=== PATIENT | male | born 1965 | race Caucasian/White ===

== ENCOUNTER 2016-12-30 08:42 | Emergency (ER) | payer OTHER ==
[2016-12-30 09:00] VITALS: BP 136/92; PULSE 83; RESP 16; O2SAT 100
--- NOTE | 2016-12-30 09:01 | ED.REPORT ---
HPI-Extremity Problem Lower Date of Service Dec 30, 2016 ED Provider: Antonio Pt is a 51 year old male presenting to the ED complaining of a possible needle stuck in his left thigh. He denies any pain or discomfort. He was putting in IM testosterone and felt that the plunger pushed in easier than normal, then when he removed it he did not visualize the needle. Denies vomiting, fever, wheezing , weakness, or any swelling or pain. Nursing Notes Stated Complaint: POSS NEEDLE IN RT THIGH Chief Complaint: Extremity Trauma Nursing Notes Reviewed: Yes Allergies: Coded Allergies: No Known Allergies (Unverified , 12/30/16) General Time Seen by MD: 09:01 Chief Complaint Thigh injury left Hx Obtained From: Patient Arrived By: Walk-in Onset Occurred: Just prior to arrival Symptom Duration: Since onset Location: : Thigh left Severity: Current: No pain currently Severity: Maximum: No pain Recent Healthcare: No recent doctor visit, No recent hospitalization Similar Sx Previous: No Past Medical History Past Medical History IM testosterone injections Past Surgical History denies Smoking History Unknown if Ever Smoker Ambulatory Status Independent Review of Systems Constitutional: Denies: Fever, Weakness - generalized Musculoskeletal: Denies: Extremity pain, Extremity swelling Complete sys rev & neg: except as marked. Respiratory: Denies: Wheezing GI: Denies: Vomiting Physical Exam Initial Vital Signs Vital Signs (First) Date Time Temp Pulse Resp B/P Pulse Ox O2 Delivery O2 Flow Rate FiO2 12/30/16 09:00 36.8 83 16 136/92 100 Room Air Initial VS: Reviewed General/Constitutional: Well-developed, Well-nourished Head / Eyes: Atraumatic, Normocephalic, PERRL ENT: Mucous membranes moist, Conjunctiva normal, No scleral icterus Neck: Full range of motion Respiratory: No respiratory distress Abdomen / GI: No distention Upper Extremities: Vascular intact, Neuro intact, No swelling, No tenderness Neurologic: Alert, Oriented, Nonfocal Psychiatric: Mood/affect normal, Behavior normal, Normal thought content Lower Extremity / Pelvis / MS: No deformity, Neurologic intact, Vascular intact Injection site on the left anterior mid thigh. No palpable subcutaneous foreign body. No tenderness. Re-Eval/Medical Decision Med Decision/Clinical Course Patient self injects testosterone. The needle that he uses has a auto retractable device. While in the room, the patient fully disassembled the syringe and together we both identified a fully intact needle. There is no palpable foreign body in the thigh. Patient is discharged. Re-Evaluation/Progress : Time of Eval: 09:14 Patient Status: Condition improved Re-Evaluation/Progress Note: The pt brought a "vanishing" needle device. He took it apart and we both visualized that the needle was in the syringe. I don't palpate a foreign body. We both agree that we visualized the needle in the plunger. Discussed plan for discharge. Pt understands and agrees. Counseled Regarding: Diagnosis, Lab results, Need for follow-up, When/why to return to ED Discharge & Departure Impression: Primary Impression: Complication of injection Encounter type: initial encounter Qualified Code: T80.90XA - Unspecified complication following infusion and therapeutic injection, initial encounter Disposition: Home Discharge Condition All VS Reviewed: Yes Condition: Improved Additional Instructions: After further evaluation of your syringe, we have identified that the needle is not retained in your body. Follow up with your doctor as needed and return to ER as needed. Joyce Attestation Portions of this note were transcribed by Stacey Garcia. I, Dr. Alvarez personally performed the history, physical exam and medical decision-making; I reviewed and confirmed the accuracy of the information in the transcribed note. Signed by: Joyce Stovall, 12/30/2016. Christian Alvarez DO Dec 30, 2016 09:01 STACEY GARCIA Dec 30, 2016 09:09
[2016-12-30 09:56] VITALS: BP 136/92; PULSE 83; RESP 16; O2SAT 100
== END 2016-12-30 09:56 | disposition home or self-care (01) ==
LOC: SED 08:42
DX: T80.89XA Other complications following infusion, transfusion and therapeutic injection, initial encounter (principal); Y84.8 Other medical procedures as the cause of abnormal reaction of the patient, or of later complication, without mention of misadventure at the time of the procedure; Y93.89 Activity, other specified; Y99.8 Other external cause status; Y92.019 Unspecified place in single-family (private) house as the place of occurrence of the external cause